=== PATIENT | male | born 1945 | race American Indian/Alaskan Native ===

== ENCOUNTER 2017-07-25 06:35 | Day surgery (SDC) | payer MEDICARE ==
[2017-07-17 08:38] VITALS: BMI 27.4
[2017-07-25] MEDS ORDERED: Propofol 10 mg/ml Inj (20 ML) ONE (09:04)
[2017-07-25] MEDS ORDERED: Etomidate 20 mg/10ml Inj IV ONE (09:06)
[2017-07-25 10:09] VITALS: TEMP 97.5
[2017-07-25] MEDS ORDERED: Sodium Chloride 0.9% 1,000 ML IV SCH (10:15)
[2017-07-25 11:03] VITALS: BP 162/78; PULSE 68; RESP 17; O2SAT 100
== END 2017-07-25 11:35 | disposition home or self-care (01) ==
LOC: ENDO 06:35
PROVIDERS: ATTEND Specialist
DX: K26.9 Duodenal ulcer, unspecified as acute or chronic, without hemorrhage or perforation (principal); K29.50 Unspecified chronic gastritis without bleeding; D12.0 Benign neoplasm of cecum; D12.4 Benign neoplasm of descending colon; K64.8 Other hemorrhoids; Z12.11 Encounter for screening for malignant neoplasm of colon
CPT/HCPCS: 43239; 45380; 45385; 82948; 88305; 88342; J2704; J7040 ×2

== ENCOUNTER 2017-12-17 08:01 | Day surgery (SDC) | payer MEDICARE ==
[2017-07-17 08:38] VITALS: BMI 27.4
[2017-12-17] MEDS ORDERED: cefTRIAXone (Rocephin) 1 gm Inj ONE (10:56)
[2017-12-17] MEDS ORDERED: Lidocaine 1% Inj (20ml) ONE (11:09)
[2017-12-17] MEDS ORDERED: Etomidate 20 mg/10ml Inj IV ONE (11:09)
[2017-12-17] MEDS ORDERED: Gentamicin 80 mg/2mL Inj. ONE (11:19)
[2017-12-17] MEDS ORDERED: Nitroglycerin 2% Ointment Foilpak UD TOP ONE (11:22)
[2017-12-17] MEDS ORDERED: Sodium Chloride 0.9% 1,000 ML IV SCH (12:00)
[2017-12-17 13:21] VITALS: BP 154/83; PULSE 61; RESP 20; TEMP 97.8; O2SAT 94
--- NOTE | 2017-12-17 22:38 | OP ---
PROCEDURE DATE: 12/17/2017 PREOPERATIVE DIAGNOSES: Hematuria, bladder neck contracture. POSTOPERATIVE DIAGNOSES: Hematuria, bladder neck contracture. PROCEDURES: Cystoscopy, transurethral incision and transurethral resection of bladder neck tissue. ATTENDING SURGEON: Jarocho Nicole MD ANESTHESIA: General. SPECIMENS: Bladder neck chips were sent to pathology. DRAINS: A 22-German 3-way Lazo catheter. COMPLICATIONS: There were none. OPERATIVE FINDINGS: After informed consent was obtained, the patient was taken to the operating room and placed on the operating table. Anesthesia was administered. The patient received IV antibiotics and was placed in the dorsal lithotomy position and prepped and draped in the usual sterile fashion. A 22-German cystoscope was placed in the patient's urethra and advanced proximally under direct vision. 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 The prostate appears to have been resected. There was a tight bladder neck contracture noted. I was able to push the scope through the bladder neck contracture and into the bladder. Inspection was then made. There were no bladder tumors or stones noted. There was grade I-II trabeculation noted. Both ureteral orifices were able to be visualized. At this point, the scope was withdrawn. A 26 resectoscope was then passed with a Serra knife. The bladder neck contracture was then incised at the 5 o'clock and 7 o'clock positions. It opened widely. After incising the bladder neck, there was a lump of tissue noted at the 6 o'clock position which was flopping into the channel. Decision was made to excise this piece of tissue. The Serra knife was removed and a loop was placed. The tissue was then excised and sent to pathology as specimen. Any bleeding points were then controlled using electrocautery. A final inspection was then made. The bladder neck was now widely opened. There were no remaining chips in the bladder and there was good hemostasis. The resectoscope was then withdrawn and a 22-German 3-way Lazo catheter was passed and placed to continuous bladder irrigation. The patient tolerated procedure well. He was taken to the recovery room awake in stable condition. Jarocho Nicole MD
== END 2017-12-17 15:00 | disposition home or self-care (01) ==
LOC: SDS 08:01
PROVIDERS: ATTEND Urology
DX: N32.0 Bladder-neck obstruction (principal); R31.9 Hematuria, unspecified; I10 Essential (primary) hypertension; I25.10 Atherosclerotic heart disease of native coronary artery without angina pectoris; E11.9 Type 2 diabetes mellitus without complications
CPT/HCPCS: 52500; 88307; J1580; J2405; J3010; J7040; J7120